=== PATIENT | female | born 1995 | race Two or more races ===

== ENCOUNTER 2018-07-25 15:31 | Emergency (ER) | payer SELFPAY ==
[~2018-07-25 15:31] MED LIST: ISOVUE-370 76%-LOCM 1 ML ONE
[2018-07-25] MEDS ORDERED: Ketorolac Tromethamine 30 MG/ML VIAL ONE (15:53)
[2018-07-25 16:18] LABS: MONO NEGATIVE CONTROL ZONE White (Negative) (White); MONO POSITIVE CONTROL Pink Line (Positive) (PINK/RED); Mononucleosis NEGATIVE (NEGATIVE)
[2018-07-25] MEDS ORDERED: Dexamethasone 10 MG/ML VIAL ONE (16:53)
--- NOTE | 2018-07-25 17:28 | CT ---
CT OF THE NECK WITH IV CONTRAST 07/25/18 COMPARISON: None. HISTORY: 23-year-old female with right sided ear pain, right sided throat swelling for 1.5 months. TECHNIQUE: Serial axial CT imaging obtained at 2.5 mm intervals from skull base through lung apices with IV cont rast. Coronal and sagittal reformatted imaging obtained. FINDINGS: The imaged paranasal sinuses are unremarkable. There is partial opacification of the mastoid air cell s on the right inferiorly. The retroantral and parapharyngeal fat appears clear bilaterally. There is narrowing of the oropharyn geal airway in the transverse dimension secondary to enlargement of bilateral tonsillar pills, right greater than left. No discrete abscess is noted. The parotid glands and submandibular glands appear grossly unremarkable. The hyoid bone, epiglottis a nd pre-epiglottic fat, thyroid cartilage, cricoid cartilage, thyroid gland, and level of glottis appe ar unremarkable. The imaged lung apices are unremarkable. There is an enlarged level II lymph node on the right measuring 1 cm in short axis dimension. Multipl e mildly enlarged posterior triangle lymph nodes are noted bilaterally, measuring up to 1 cm in short axis dimension bilaterally. The vascular structures appear patent. Osseous structures demonstrate no acute findings. IMPRESSION: No abscess is noted. Bilateral palatine tonsils are enlarged, right greater than left, which may sign zane pharyngitis. Mild neck adenopathy noted bilaterally, which may be reactive in nature. Followup im aging is advised as clinically warranted. Partial opacification of mastoid air cells inferiorly on th e right. POS: [facility]
== END 2018-07-25 17:30 | disposition home or self-care (01) ==
LOC: ERS 15:31
DX: H66.91 Otitis media, unspecified, right ear (principal); J02.9 Acute pharyngitis, unspecified; D64.9 Anemia, unspecified
CPT/HCPCS: 36415; 70491; 86308; 87081; 87430; 96372; J1100; J1885

== ENCOUNTER 2019-05-14 11:55 | Emergency (ER) | payer SELFPAY | END 2019-05-14 12:54 | disposition home or self-care (01) | LOC: ERS 11:55 | DX: K04.7 Periapical abscess without sinus (principal); K02.9 Dental caries, unspecified; K03.81 Cracked tooth; D64.9 Anemia, unspecified | CPT/HCPCS: 99281 ==

== ENCOUNTER 2019-06-04 12:17 | Emergency (ER) | payer SELFPAY | END 2019-06-04 13:35 | disposition home or self-care (01) | LOC: ERS 12:17 | DX: K03.81 Cracked tooth (principal); K02.9 Dental caries, unspecified; D64.9 Anemia, unspecified | CPT/HCPCS: 99282 ==